=== PATIENT | male | born 1965 | race Caucasian/White ===

== ENCOUNTER 2018-03-05 22:54 | Emergency (ER) | payer MEDICAID ==
[~2018-03-05] VITALS: Ht 172.7 cm; Wt 56.7 kg
[2018-03-05 23:22] VITALS: BP 125/88
[2018-03-06] MEDS ORDERED: KETOROLAC TROMETH 60MG/2ML VIAL IM ONE (04:45)
[2018-03-06] MEDS ORDERED: cefTRIAXone SOD 1,000 MG VL IM ONE (06:30)
[2018-03-06] MEDS ORDERED: LIDOCAINE 1% HCL (LOCAL ANESTH.) INJ 20ML MDV ID ONE (06:30)
== END 2018-03-06 06:49 | disposition home or self-care (01) ==
LOC: ER 22:56
DX: S61.401A Unspecified open wound of right hand, initial encounter (principal); W19.XXXA Unspecified fall, initial encounter; Y93.89 Activity, other specified; Y92.89 Other specified places as the place of occurrence of the external cause; Y99.8 Other external cause status
CPT/HCPCS: 73120; 96372; 99284; J0696; J1885; J2001